=== PATIENT | female | born 1980 | race Caucasian/White ===

== ENCOUNTER 2017-07-27 18:58 | Emergency (ER) | payer MEDICAID ==
[~2017-07-27] VITALS: Ht 162.6 cm; Wt 112.0 kg
[~2017-07-27 18:58] MED LIST: AZIT250T94 PO; CALC500T PO; PREN1TAB49
[2017-07-27 19:26] VITALS: Ht 162.6 cm; Wt 112.0 kg
[2017-07-27] MEDS ORDERED: CETI10CA PO (21:43)
[2017-07-27] MEDS ORDERED: GUAI-637 PO (21:43)
[2017-07-27] MEDS ORDERED: IBUP-1542 PO (21:43)
[2017-07-27] MEDS ORDERED: BENZ100C70 PO (21:44)
--- NOTE | 2017-07-27 22:12 | ERD ---
ER Documentation Chief Complaint Chief Complaint COUGH AND CONGESTION WITH A ST X 2 DAYS, REPORTS FEVER AT HOME. HPI Patient is a 29-year-old female who presents to the ED for concerns of cough, rhinorrhea, sore throat and bilateral ear pain is 2 days. Patient reports tactile fevers. Patient denies taking any medication for symptoms. States that her cough is dry in nature. Patient denies any drooling, trismus or hyperextension of her neck. Patient denies any chest pain, shortness of breath , vomiting, nausea, vomiting, diarrhea or loss of consciousness. No recent travel. No sick contacts. ROS All systems reviewed and are negative except as per history of present illness. Medications Home Meds Active Scripts Benzonatate* (Tessalon Perle*) 100 Mg Capsule, 100 MG PO Q8H Y for COUGH, #20 CAP Prov:PANTEAR MOTLEY PA-C 07/27/17 Guaifenesin* (Robitussin*) 100 Mg/5 Ml Syrup, 100 MG PO Q4H Y for COUGH, #1 BOT Prov:PANTERA MOTLEY PA-C 07/27/17 Cetirizine Hcl* (Zyrtec*) 10 Mg Capsule, 10 MG PO DAILY, #10 TAB.CHEW Prov:PANTERA MOTLEY PA-C 07/27/17 Ibuprofen* (Motrin*) 600 Mg Tab, 600 MG PO Q6, #20 TAB Prov:PANTERA MOTLEY PA-C 07/27/17 Azithromycin* (Zithromax*) 250 Mg Tablet, 250 MG PO .ZPACK DIRECTED, #6 TAB TAKE 500 MG (2 TABS) THE FIRST DAY THEN 250 MG (1 TAB) DAYS 2-5 Prov:SARA KHAN 08/21/15 Reported Medications Calcium Carbonate (Calcium 500) 1 Tab Tablet, 1 TAB PO 12/05/11 Vits W-Ca,Fe,Fa(<1MG) () 1 Tab Tablet, 1 12/05/11 Allergies Allergies: Coded Allergies: No Known Drug Allergies (Verified Allergy, Unknown, 07/27/17) PMhx/Soc Medical and Surgical Hx: pt denies Medical Hx, pt denies Surgical Hx History of Surgery: No Anesthesia Reaction: No Hx Neurological Disorder: No Hx Respiratory Disorders: No Hx Cardiac Disorders: No Hx Psychiatric Problems: No Hx Miscellaneous Medical Probl: No (DENIES HX) Hx Alcohol Use: No Hx Substance Use: No Hx Tobacco Use: No Smoking Status: Never smoker FmHx Family History: No diabetes Physical Exam Vitals Vital Signs Date Time Temp Pulse Resp B/P Pulse Ox O2 Delivery O2 Flow Rate FiO2 07/27/17 19:26 99.7 99 20 119/65 96 Physical Exam GENERAL: Well-developed, well-nourished female. Appears in no acute distress. HEAD: Normocephalic, atraumatic. No deformities or ecchymosis. EYE: Pupils equal, round, and reactive to light. EOMs intact. No conjunctival erythema. No eye discharge. ENT: External ear without any masses or tenderness. Auditory canals clear bilaterally. TM visualized bilaterally, non-erythematous, non-bulging. Nasal mucosa pink with no discharge. Oropharynx is pink without any tonsillar erythema or exudates. No uvula deviation. No kissing tonsils. Nontender to palpation of bilateral mastoid processes. NECK: Supple. No meningismus. Normal ROM of the neck. LUNGS: Clear to auscultation bilaterally. No rhonchi, wheezing, rales or coarse breath sounds. HEART: Regular rate and rhythm. EXTREMITIES: Equal pulses bilaterally. No peripheral clubbing, cyanosis or edema. No unilateral leg swelling. NEUROLOGIC: Alert and oriented to person, place and time. Moving all four extremities. 5/5 strength in all extremities. Normal speech. Steady gait. SKIN: Normal color. Warm and dry. No rashes or lesions. Procedures/MDM MEDICAL DECISION MAKING: This is a 37-year-old female who presents with concerns of tactile fevers, dry cough, throat pain and bilateral ear pain 2 days. Vital signs were reviewed. Patient was afebrile. Patient was not hypoxic. ENT exam was normal. Lung exam was normal. Given these findings, the patients presentation is most consistent with viral illness. Low suspicion for pneumonia, meningitis, sinusitis, otitis externa, acute otitis media, strep pharyngitis, epiglottitis or peritonsillar abscess. PRESCRIPTIONS: Ibuprofen, Robitussin cough syrup, Tessalon Perles, Zyrtec DISCHARGE: At this time, patient is stable for discharge and outpatient management. Supportive therapies such as OTC throat lozenges, salt water gurgles, popsicles and jello discussed. I have instructed the patient to follow-up with his/her primary care physician in 1-2 days. I have instructed the patient to promptly return to the ER for any new or worsening symptoms including increased pain, swelling, fever, nausea, vomiting, weakness or difficulty breathing. The patient and/or family expressed understanding of and agreement with this plan. All questions were answered. Home care instructions were provided. Disclaimer Departure Diagnosis: Primary Impression: Viral illness Condition: Stable Patient Instructions: Influenza (Adult) Referrals: [facility] YOU HAVE RECEIVED A MEDICAL SCREENING EXAM AND THE RESULTS INDICATE THAT YOU DO NOT HAVE A CONDITION THAT REQUIRES URGENT TREATMENT IN THE EMERGENCY DEPARTMENT. FURTHER EVALUATION AND TREATMENT OF YOUR CONDITION CAN WAIT UNTIL YOU ARE SEEN IN YOUR DOCTORS OFFICE WITHIN THE NEXT 1-2 DAYS. IT IS YOUR RESPONSIBILITY TO MAKE AN APPOINTMENT FOR FOLOW-UP CARE. IF YOU HAVE A PRIMARY DOCTOR --you should call your primary doctor and schedule an appointment IF YOU DO NOT HAVE A PRIMARY DOCTOR YOU CAN CALL OUR PHYSICIAN REFERRAL HOTLINE AT IF YOU CAN NOT AFFORD TO SEE A PHYSICIAN YOU CAN CHOSE FROM THE FOLLOWING [facility] [address] [facility]. [facility] [address] [facility] [facility] [address] [facility] [facility] [address] [facility] [address] [facility]. [facility]. [address] [facility]. [facility] YOU HAVE RECEIVED A MEDICAL SCREENING EXAM AND THE RESULTS INDICATE THAT YOU DO NOT HAVE A CONDITION THAT REQUIRES URGENT TREATMENT IN THE EMERGENCY DEPARTMENT. FURTHER EVALUATION AND TREATMENT OF YOUR CONDITION CAN WAIT UNTIL YOU ARE SEEN IN YOUR DOCTORS OFFICE WITHIN THE NEXT 1-2 DAYS. IT IS YOUR RESPONSIBILITY TO MAKE AN APPOINTMENT FOR FOLOW-UP CARE. IF YOU HAVE A PRIMARY DOCTOR --you should call your primary doctor and schedule and appointment IF YOU DO NOT HAVE A PRIMARY DOCTOR YOU CAN CALL OUR PHYSICIAN REFERRAL HOTLINE AT . IF YOU CAN NOT AFFORD TO SEE A PHYSICIAN YOU CAN CHOSE FROM THE FOLLOWING [facility] INSTITUTIONS: [facility] [address] [place] [address] [facility] [address] [place] [address] [facility] [address] [place] [address] Additional Instructions: Llame al doctor MAANA y emery laurita PANTERA PARA DENTRO DE 1-2 ABRAHAM.Dgale a la secretaria que nosotros le instruimos hacer esta pantera.Avise o llame si craig condicin se empeora antes de la pantera. Regresa aqui si peor o no mejor. PANTERA MOTLEY PA-C Jul 27, 2017 22:12
== END 2017-07-27 21:56 | disposition home or self-care (01) ==
LOC: FTE 18:58
DX: B34.9 Viral infection, unspecified (principal)
CPT/HCPCS: 99283

== ENCOUNTER 2017-09-15 05:22 | Emergency (ER) | END 2017-09-15 09:22 | disposition home or self-care (01) ==

== ENCOUNTER 2017-12-21 09:17 | Emergency (ER) | END 2017-12-21 10:29 | disposition home or self-care (01) ==

== ENCOUNTER 2018-11-21 08:49 | Emergency (ER) | payer MEDICAID ==
[~2018-11-21] VITALS: Ht 167.6 cm; Wt 113.8 kg
[~2018-11-21 08:49] MED LIST changes: +ACET325T33 PO; +AMOX1TAB10 PO; +AZIT250T PO; -AZIT250T94 PO; +BENZ-6 PO; +BENZ1LOZ52 MM; +CETI10CA PO; +GUAI-637 PO; +IBUP-1542 PO; +PRED20TA PO; +PSEU30TA38 PO
[2018-11-21 08:52] VITALS: BP 133/60; PULSE 82; RESP 20; Ht 167.6 cm; Wt 113.8 kg
[2018-11-21] MEDS ORDERED: PRED20TA PO (09:12)
--- NOTE | 2018-11-21 09:14 | ERD ---
ER Documentation Chief Complaint Chief Complaint Complains of a sore throat x 3 days HPI 38-year-old female is here complaining of sore throat that she has had for 9 days. She went to her primary care doctor and they gave her Flonase and Tylenol but she states is not helping. She is now having bilateral ear pain. No fever. She is tolerating oral intake. ROS All systems reviewed and are negative except as per history of present illness. Medications Home Meds Active Scripts Prednisone* (Prednisone*) 20 Mg Tab, 60 MG PO DAILY for 4 Days, TAB Prov:RADHA BLANTON PA-C 11/21/18 Pseudoephedrine Hcl* (Pseudoephedrine Hcl*) 30 Mg Tablet, 30 MG PO Q6 PRN for CONGESTION, #30 TAB Prov:SHAYY ROGER PA-C 12/21/17 Amoxicillin/Potassium Clav (Amox-Clav 875-125 mg Tablet) 875-125 mg Tab, 1 TAB PO BID for 7 Days, #14 TAB Prov:SHAYY ROGER PA-C 12/21/17 Acetaminophen* (Tylenol*) 325 Mg Tablet, 2 TAB PO Q8 PRN for PAIN AND OR ELEVATED TEMP, #20 TAB Prov:SHAYY ROGER PA-C 12/21/17 Ibuprofen* (Motrin*) 600 Mg Tab, 600 MG PO Q6, #30 TAB Prov:SHAYY ROGER PA-C 12/21/17 Benzocaine/Menthol* (Cepacol* Sore Throat Lozenges) 1 Each Lozenge, 1 EACH MM q2h PRN for SORE THROAT, #20 LOZENGE Prov:SHARONA CHAVEZ PA-C 09/15/17 Ibuprofen* (Motrin*) 600 Mg Tab, 600 MG PO Q6, #30 TAB Prov:SHARONA CHAVEZ PA-C 09/15/17 Acetaminophen* (Tylenol*) 325 Mg Tablet, 1 TAB PO Q6 PRN for PAIN AND OR ELEVATED TEMP, #20 TAB Prov:SHARONA CHAVEZ PA-C 09/15/17 Prednisone* (Prednisone*) 20 Mg Tab, 40 MG PO DAILY for 4 Days, TAB Prov:SHARONA CHAVEZ PA-C 09/15/17 Benzonatate* (Tessalon Perle*) 100 Mg Capsule, 100 MG PO Q8H PRN for COUGH, #20 CAP Prov:PANTERA MOTLEY IVANA 07/27/17 Guaifenesin* (Robitussin*) 100 Mg/5 Ml Syrup, 100 MG PO Q4H PRN for COUGH, #1 BOT Prov:PANTERA MOTLEY CHRISTELC 07/27/17 Cetirizine Hcl* (Zyrtec*) 10 Mg Capsule, 10 MG PO DAILY, #10 TAB.CHEW Prov:PANTERA MOTLEY IVANA 07/27/17 Ibuprofen* (Motrin*) 600 Mg Tab, 600 MG PO Q6, #20 TAB Prov:PANTERA MOTLEY IVANA 07/27/17 Azithromycin* (Zithromax*) 250 Mg Tablet, 250 MG PO .ZPACK DIRECTED, #6 TAB TAKE 500 MG (2 TABS) THE FIRST DAY THEN 250 MG (1 TAB) DAYS 2-5 Prov:SARA KHAN 08/21/15 Reported Medications Calcium Carbonate (Calcium 500) 1 Tab Tablet, 1 TAB PO 12/05/11 Vits W-Ca,Fe,Fa(<1MG) () 1 Tab Tablet, 1 12/05/11 Allergies Allergies: Coded Allergies: No Known Drug Allergies (Verified Allergy, Unknown, 07/27/17) PMhx/Soc History of Surgery: Yes (C SECTION) Anesthesia Reaction: No Hx Neurological Disorder: No Hx Respiratory Disorders: No Hx Cardiac Disorders: No Hx Psychiatric Problems: No Hx Miscellaneous Medical Probl: No Hx Alcohol Use: No Hx Substance Use: No Hx Tobacco Use: Yes Smoking Status: Current some day smoker FmHx Family History: No diabetes Physical Exam Vitals Vital Signs Date Temp Pulse Resp B/P (MAP) Pulse Ox O2 O2 Flow FiO2 Time Delivery Rate 11/21/18 98.1 82 20 133/60 94 08:52 (84) Physical Exam INITIAL VITAL SIGNS: Reviewed by me GENERAL: Awake, alert and oriented x 4, well appearing, nontoxic, speaking in full sentences. No acute distress HEAD: Atraumatic NECK: Supple. No masses. Full range of motion. No meningismus. No midline tenderness. EYES: EOMI. PERRL. EAR: No tenderness over the mastoids bilaterally. No exudates in the canals. TMs nonerythematous. NOSE: Normal nose. THROAT: No tonilar erythema or edema. No exudates. Uvula midline. No kissing tonsils. RESPIRATORY: Clear to auscultation bilaterally. Symmetric chest wall rise. No wheezing or rales. No accessory muscle use. CV: Regular rate and rhythm. No murmurs, rubs, or gallops. Procedures/MDM Patient has sore throat. Likely viral. Exam is normal she is afebrile well- appearing. short coure of prednisne given. Patient counseled regarding my diagnostic impression and care plan. Prior to discharge all questions answered. Pt agrees with treatment plan and understands strict return precautions. Pt is instructed to follow up with primary care provider within 24-48 hours. Precautionary instructions provided including instructions to return to the ER if not improving or for any worsening or changing symptoms or concerns. Departure Diagnosis: Primary Impression: Pharyngitis Condition: Stable Patient Instructions: Pharyngitis, Viral Additional Instructions: Llame al doctor TOM y emery laurita PANTERA PARA DENTRO DE 1-2 ABRAHAM.Dgale a la secretaria que nosotros le instruimos hacer esta pantera.Avise o llame si craig condicin se empeora antes de la pantera. Regresa aqui si peor o no mejor. RADHA BLANTON PA-C Nov 21, 2018 09:14
== END 2018-11-21 09:42 | disposition home or self-care (01) ==
LOC: FTE 08:49
DX: J02.9 Acute pharyngitis, unspecified (principal); F17.210 Nicotine dependence, cigarettes, uncomplicated
CPT/HCPCS: 99283